=== PATIENT | female | born 1960 | race Caucasian/White ===

== ENCOUNTER 2018-11-13 08:29 | Day surgery (SDC) | payer OTHER ==
[~2018-11-13] VITALS: Ht 162.6 cm; Wt 69.3 kg
[~2018-11-13 08:29] MED LIST: LIDOCAINE 2% (SDV) 5 ML INJ ONE; LISINOPRIL PO; METFORMIN PO
[2018-11-13] MEDS ORDERED: lisinopril ×2 (09:10→09:21)
[2018-11-13] MEDS ORDERED: metformin ×2 (09:10→09:21)
[2018-11-13] MEDS ORDERED: aspirin ×2 (09:10→09:21)
[2018-11-13] MEDS ORDERED: atorvastatin (09:10)
--- NOTE | 2018-11-13 09:25 | PREAC ---
Date/Time of Note Date/Time of Note DATE: 11/13/18 TIME: 09:24 Anesthesia Eval and Record Evaluation Time Pre-Procedure Interview DATE: 11/13/18 TIME: 09:24 Age 58 Sex female NPO: 8 hrs Preoperative diagnosis anal bleeding Planned procedure EGD,colonoscopy Past Medical History Past Medical History: Includes Cardio: HTN, Dyslipidemia Endo: Diabetes Heme: Anemia Surgery & Anesthesia Issues No known issue Meds Anticoagulation: No Beta Whitney within 24 hr: No Reason Beta Whitney not given: Pt. not on B-Whitney Reported Medications [metformin] No Conflict Check 11/13/18 [lisinopril] No Conflict Check 11/13/18 [aspirin] No Conflict Check 11/13/18 [atorvastatin] No Conflict Check 11/13/18 [metformin] No Conflict Check 11/13/18 [lisinopril] No Conflict Check 11/13/18 [aspirin] No Conflict Check 11/13/18 [Lisinopril] No Conflict Check, PO 12/27/15 [Metformin] No Conflict Check, PO 12/27/15 Meds reviewed: Yes Allergies Allergies Reviewed: Yes Labs/Studies Labs Reviewed: Reviewed by anesthesiologist test: Negative Studies: ECG, CXR Pre-procedure Exam Airway: Adequate mouth opening, Adequate thyromental dist Mallampati: Mallampati III Teeth: Normal Lung: Normal Heart: Normal ASA Physical Status ASA physical status: 3 Emergency: None Planned Anesthetic General/MAC: MAC Planned Pain Management Parenteral pain med Pre-operative Attestations Prior to commencing anesthesia and surgery, the patient was re-evaluated, there was verification of: *The patient's identity *The results of appropriate recent lab work and preoperative vital signs *The above evaluation not changing prior to induction *Anesthetic plan, risk benefits, alternative and complications discussed with patient/family; questions answered; patient/family understands, accepts and wishes to proceed. BENITEZ LARA MD Nov 13, 2018 09:25
[2018-11-13] MEDS ORDERED: PROPOFOL 60 ML ONE (09:28)
[2018-11-13 09:34] VITALS: Ht 162.6 cm; Wt 69.3 kg
[2018-11-13 09:37] VITALS: BP 134/66; PULSE 67; RESP 18
[2018-11-13 10:50] VITALS: BP 127/81; RESP 20
--- NOTE | 2018-11-13 12:27 | PAC ---
Date/Time of Note Date/Time of Note DATE: 11/13/18 TIME: 12:27 Post-Anesthesia Notes Post-Anesthesia Note Last documented vital signs Vital Signs Date Temp Pulse Resp B/P (MAP) Pulse Ox O2 O2 Flow FiO2 Time Delivery Rate 11/13/18 20 127/81 98 10:50 (96) 11/13/18 98.3 67 Room Air 09:37 Activity: WNL Respiratory function: WNL Cardiovascular function: WNL Mental status: Baseline Pain reasonably controlled: Yes Hydration appropriate: Yes Nausea/Vomiting absent: Yes BENITEZ LARA MD Nov 13, 2018 12:27
== END 2018-11-13 12:32 | disposition home or self-care (01) ==
LOC: GIL 08:29
PROVIDERS: ATTEND Internal Medicine Gastroenterology
DX: R19.5 Other fecal abnormalities (principal); K20.8 Other esophagitis
CPT/HCPCS: 43239; 88305; 88312; Z7610